=== PATIENT | female | born 1955 | race Caucasian/White ===

== ENCOUNTER → 2018-07-10 | Outpatient (CLI) | payer OTHER ==
[~2018-07-10] MED LIST: FAMO20 PO; TRAACE PO
== END | disposition home or self-care (01) ==
LOC: LAB SHORT 15:16 → LAB EV 15:16
DX: N39.0 Urinary tract infection, site not specified (principal)
CPT/HCPCS: 87077; 87086; 87186

== ENCOUNTER 2019-06-18 21:42 | Emergency (ER) | payer OTHER, MEDICARE ==
[~2019-06-18] VITALS: Ht 162.6 cm; Wt 85.7 kg
[2019-06-18 22:10] LABS: BASOPHILS ABSOLUTE AUTO 0.03 K/mm3 (0.00-0.23); BASOPHILS PERCENT AUTO 0 % (0-2); EOSINOPHILS ABSOLUTE AUTO 0.13 K/mm3 (0.00-0.68); EOSINOPHILS PERCENT AUTO 1 % (0-6); Hematocrit 42.7 % (33.0-51.0); Hemoglobin 13.8 g/dL (11.5-16.0); IMMATURE GRAN ABSOLUTE AUTO 0.04 K/mm3 (0.00-0.10); IMMATURE GRAN PERCENT AUTO 0 % (0-1); LYMPHOCYTES ABSOLUTE AUTO 5.14 K/mm3 (0.84-5.20); LYMPHOCYTES PERCENT AUTO 45 % (21-46); MONOCYTES ABSOLUTE AUTO 0.78 K/mm3 (0.16-1.47); MONOCYTES PERCENT AUTO 7 % (4-13); Mean Corpuscular HGB 29.3 pg (26.0-34.0); Mean Corpuscular HGB Conc 32.3 g/dL (31.5-36.5); Mean Corpuscular Volume 91 fL (80-100); Mean Platelet Volume 9.1 fL (9.1-12.4); NEUTROPHILS ABSOLUTE AUTO 5.23 K/mm3 (1.96-9.15); NEUTROPHILS PERCENT AUTO 46 % (41-73); Platelet Count 436 K/mm3 (150-400); RDW Coefficient Variation 12.1 % (11.7-14.2); RDW Standard Deviation 40.2 fL (35.1-46.3); Red Blood Cell Count 4.71 M/mm3 (3.80-5.20); White Blood Cell Count 11.35 K/mm3 (4.00-11.30)
[2019-06-18 22:31] LABS: Alanine Aminotransfer (ALT/SGP 31 U/L (12-78); Albumin, Blood 3.4 g/dL (3.4-5.0); Albumin/Globulin Ratio 0.9 (0.8-1.8); Alk Phos 71 U/L (50-136); Anion Gap 6 mmol/L (6-16); Aspartate Aminotrans (AST/SGOT 16 U/L (12-37); Bilirubin, Total 0.3 mg/dL (0.1-1.0); Blood Urea Nitrogen 12 mg/dL (8-24); Bun/Creatinine Ratio 23.5 (12.0-20.0); CO2, Blood 27 mmol/L (21-32); Calcium, Blood 9.5 mg/dL (8.5-10.1); Chloride, Blood 107 mmol/L (98-108); Creatinine, Blood 0.51 mg/dL (0.40-1.00); Globulin, Blood 3.8 g/dL (2.2-4.0); Glomerular Filtration Rate >60 (60-); Glucose, Blood 107 mg/dL (70-99); Potassium, Blood 3.4 mmol/L (3.5-5.5); Sodium, Blood 140 mmol/L (136-145); Total Protein, Blood 7.2 g/dL (6.4-8.2); Troponin I <0.015 ng/mL (0.000-0.040)
[2019-06-18 22:37] LABS: Influenza A Negative (NEGATIVE); Influenza B Negative (NEGATIVE)
[2019-06-18 22:38] LABS: Base Excess Venous 3.7 mmol/L; Bicarbonate Venous 27.4 mmol/L (24.0-30.0); PCO2 Venous 41.8 mmHg (38-42); PO2 Venous 102 mmHg (38-42); pH Blood Venous 7.43 (7.34-7.37)
== END 2019-06-18 23:33 | disposition home or self-care (01) ==
LOC: ER 21:42
PROVIDERS: Emergency Medicine
DX: Z88.0 Allergy status to penicillin (principal); Z88.1 Allergy status to other antibiotic agents; Z88.2 Allergy status to sulfonamides
CPT/HCPCS: 36415; 71046; 80053; 82803; 84484; 85025; 87804; 93005; 93010; 96360; 99285-25; J7120

== ENCOUNTER 2022-09-09 20:41 | Emergency (ER) | payer OTHER, MEDICARE ==
[~2022-09-09] VITALS: Ht 154.9 cm; Wt 83.9 kg
[2022-09-09] MEDS ORDERED: HYDROCODONE-AC1 EA19 PO (21:56)
[2022-09-09] MEDS ORDERED: Buspirone HCl15 MG PO (21:57)
[2022-09-09] MEDS ORDERED: LISINOPRIL-HCT1 EACH PO (21:57)
[2022-09-09] MEDS ORDERED: AMLODIPINE BESYL5 MG PO (21:57)
[2022-09-09] MEDS ORDERED: ESCI10 PO (21:57)
== END 2022-09-09 23:50 | disposition home or self-care (01) ==
LOC: ER 20:41
DX: G89.29 Other chronic pain (principal); M54.50 Low back pain, unspecified; M41.9 Scoliosis, unspecified; Z88.0 Allergy status to penicillin; Z88.2 Allergy status to sulfonamides; Z88.1 Allergy status to other antibiotic agents; Z79.899 Other long term (current) drug therapy
CPT/HCPCS: 96372; 99282-25

== ENCOUNTER → 2024-10-19 | Outpatient (CLI) | payer MEDICARE, OTHER ==
[~2024-10-19] MED LIST changes: +AMLODIPINE BESYL5 MG PO; +Buspirone HCl15 MG PO; +ESCI10 PO; +HYDROCODONE-AC1 EA19 PO; +LISINOPRIL-HCT1 EACH PO
[2024-10-20 08:54] LABS: Creatinine Urine 41.5 mg/dL (27.00-270.00)
[2024-10-20 15:53] LABS: Calcium, Urine 12.2 mg/dL (< 17.5); Calcium, Urine Calculation 219.6 mg/24hrs (42.0-353.0)
== END ==
LOC: LAB 08:15 → LAB SHORT 08:15
PROVIDERS: Internal Medicine; Internal Medicine Endocrinology, Diabetes & Metabolism
DX: M80.00XD Age-related osteoporosis with current pathological fracture, unspecified site, subsequent encounter for fracture with routine healing (principal)
CPT/HCPCS: 82340; 82570